=== PATIENT | male | born 1995 | race Caucasian/White ===

== ENCOUNTER 2017-06-06 22:04 | Emergency (ER) | payer SELFPAY ==
[~2017-06-06 22:04] MED LIST: BACTROBAN22 GM TP; NO MEDICATIONS
== END 2017-06-06 23:29 | disposition home or self-care (01) ==
LOC: SED 22:04
DX: S61.250A Open bite of right index finger without damage to nail, initial encounter (principal); F17.210 Nicotine dependence, cigarettes, uncomplicated; W54.0XXA Bitten by dog, initial encounter; Y92.009 Unspecified place in unspecified non-institutional (private) residence as the place of occurrence of the external cause
CPT/HCPCS: 99283